=== PATIENT | male | born 1955 | race Caucasian/White ===

== ENCOUNTER → 2016-03-18 | Outpatient (CLI) | payer OTHER ==
[~2016-03-18] MED LIST: DEXL30CA4 OR
[2016-03-18 09:18] LABS: Basophils # (auto) 0 uL; Basophils % (auto) 0.4 % (0.0-2.0); Eosinophils # (auto) 0 uL; Eosinophils % (auto) 0.8 % (0.0-7.0); Hematocrit 46.7 % (41.0-53.0); Hemoglobin 15.3 g/dL (13.5-17.5); Lymphocytes % (auto) 35.6 % (10.0-50.0); Mean Corpuscular Hemoglobin 30.6 pg (28.0-32.0); Mean Corpuscular Hgb Conc. 32.7 g/dL (32.0-36.0); Mean Corpuscular Volume 93.4 fL (80.0-100.0); Mean Platelet Volume 8.9 fL (7.4-10.4); Monocytes # (auto) 0.3 uL; Monocytes % (auto) 5.7 % (0.0-12.0); Neutrophils # (auto) 3.2 uL; Neutrophils % (auto) 57.5 % (37.0-80.0); Platelet Count (auto) 194 10^3/uL (140-450); Red Cell Distribution Width 13.4 % (11.6-16.0); White Blood Cell 5.5 10^3/uL (4.4-10.8)
[2016-03-18 09:53] LABS: BUN/Creatinine Ratio 15.9; Bilirubin, Total 0.8 mg/dL (0.2-1.0); Potassium 4.6 mmol/L (3.5-5.1); Total Protein 8.1 g/dL (6.4-8.2)
[2016-03-18 10:48] LABS: Temperature: 22.3 C (20.0-25.0)
== END | disposition home or self-care (01) ==
LOC: LAB 08:21
DX: K21.9 Gastro-esophageal reflux disease without esophagitis (principal); Z83.3 Family history of diabetes mellitus; Z86.59 Personal history of other mental and behavioral disorders; R20.2 Paresthesia of skin; Z12.5 Encounter for screening for malignant neoplasm of prostate; G47.00 Insomnia, unspecified; Z12.11 Encounter for screening for malignant neoplasm of colon
CPT/HCPCS: 36415; 80053; 80061; 82306; 82607; 82746; 83036; 84153; 84403; 84443; 85025

== ENCOUNTER → 2016-03-22 | Outpatient (CLI) | payer OTHER | END | disposition home or self-care (01) | LOC: LAB 13:37 | DX: Z83.3 Family history of diabetes mellitus (principal); R21 Rash and other nonspecific skin eruption; Z86.59 Personal history of other mental and behavioral disorders; Z12.5 Encounter for screening for malignant neoplasm of prostate; G47.00 Insomnia, unspecified; Z12.11 Encounter for screening for malignant neoplasm of colon | CPT/HCPCS: 82270 ==